=== PATIENT | female | born 1945 | race Caucasian/White ===

== ENCOUNTER 2016-11-14 16:01 | Emergency (ER) | payer MEDICARE ==
[~2016-11-14] VITALS: Ht 162.6 cm; Wt 77.0 kg
[2016-11-14 16:05] VITALS: BP 186/72; PULSE 68; RESP 16; TEMP 98.2; O2SAT 99
[2016-11-14] MEDS ORDERED: ASPIRIN 81 MG CHEW TAB PO ONE (16:15)
[2016-11-14] MEDS ORDERED: SODIUM CHLORIDE 0.9% FLUSH 5 ML FLUSH IVF PRN (16:15)
--- NOTE | 2016-11-14 16:22 | PD ---
HPI . Chest pain Chief Complaint: chest pain Time Seen by Provider: 16:07 Travel History International Travel<30 days: No Contact w/Intl Traveler<30days: No History of Present Illness HPI Patient presents ambulatory with a chief complaint of chest pain that started about 2:15. She describes a sharp, crampy type pain. It was associated with some mild shortness of breath. She states that she was unable to stand straight up because of the pain in her chest. She denies any associated nausea or vomiting she denies any associated diaphoresis. The pain has virtually subsided at this point. She denies any previous similar history. She does state that she had a negative outpatient workup done about 2 years ago. This included a nuclear stress test. She further states that she exercises daily at the gym and has never had to stop exercising because of chest pain or shortness of breath. [facility] Social History Tobacco Use: No Allergies-Medications (Allergen,Severity, Reaction): Coded Allergies: No Known Allergies (Unverified , 11/14/16) Reported Meds & Prescriptions Reported Meds & Active Scripts Active Reported Lipitor (Atorvastatin Calcium) 10 Mg Tab 10 Mg PO HS Lisinopril 5 Mg Tab 5 Mg PO DAILY Review of Systems Except as stated in HPI: all other systems reviewed are Neg General / Constitutional: Positive: Other (no diaphoresis), No: Fever, Chills Cardiovascular: Positive: Chest Pain or Discomfort Respiratory: Positive: Shortness of Breath Gastrointestinal: No: Nausea, Vomiting Physical Exam Narrative GENERAL: The patient is smiling and laughing and joking and in no distress. SKIN: Warm and dry. HEAD: Atraumatic. Normocephalic. EYES: Pupils equal and round. ENT: No nasal bleeding or discharge. Mucous membranes pink and moist. NECK: Trachea midline. Neck is supple. CARDIOVASCULAR: Regular rate and rhythm. Heart sounds are normal. RESPIRATORY: No accessory muscle use. Lungs are clear with full air movement throughout. Very mild tenderness to palpation under the left breast. GASTROINTESTINAL: Abdomen soft, non-tender, nondistended. MUSCULOSKELETAL: No obvious deformities. No edema. NEUROLOGICAL: Awake and alert. No obvious cranial nerve deficits. Motor grossly within normal limits. Normal speech. PSYCHIATRIC: Appropriate mood and affect; insight and judgment normal. Data Data Last Documented VS Vital Signs Date Time Temp Pulse Resp B/P Pulse Ox O2 Delivery O2 Flow Rate FiO2 11/14/16 17:00 63 16 156/78 99 11/14/16 16:05 98.2 Orders Ckmb (Isoenzyme) Profile (11/14/16 16:14) Complete Blood Count With Diff (11/14/16 16:14) Comprehensive Metabolic Panel (11/14/16 16:14) D-Dimer (11/14/16 16:14) Magnesium (Mg) (11/14/16 16:14) Prothrombin Time / Inr (Pt) (11/14/16 16:14) Act Partial Throm Time (Ptt) (11/14/16 16:14) Troponin I (11/14/16 16:14) Chest, Single Ap (11/14/16 16:14) Ecg Monitoring (11/14/16 16:14) Bilateral Bp Monitoring (11/14/16 16:14) Iv Access Insert/Monitor (11/14/16 16:14) Oximetry (11/14/16 16:14) Sodium Chloride 0.9% Flush (Ns Flush) (11/14/16 16:15) Ct Pulmonary Angiogram (11/14/16 17:39) Iohexol 350 Inj (Omnipaque 350 Inj) (11/14/16 18:45) Labs Laboratory Tests Test 11/14/16 16:15 White Blood Count 8.2 TH/MM3 Red Blood Count 4.41 MIL/MM3 Hemoglobin 13.8 GM/DL Hematocrit 40.0 % Mean Corpuscular Volume 90.7 FL Mean Corpuscular Hemoglobin 31.3 PG Mean Corpuscular Hemoglobin 34.5 % Concent Red Cell Distribution Width 11.9 % Platelet Count 250 TH/MM3 Mean Platelet Volume 8.3 FL Neutrophils (%) (Auto) 61.9 % Lymphocytes (%) (Auto) 29.9 % Monocytes (%) (Auto) 6.5 % Eosinophils (%) (Auto) 1.0 % Basophils (%) (Auto) 0.7 % Neutrophils # (Auto) 5.0 TH/MM3 Lymphocytes # (Auto) 2.5 TH/MM3 Monocytes # (Auto) 0.5 TH/MM3 Eosinophils # (Auto) 0.1 TH/MM3 Basophils # (Auto) 0.1 TH/MM3 CBC Comment DIFF FINAL Differential Comment Prothrombin Time 10.5 SEC Prothromb Time International 1.0 RATIO Ratio Activated Partial 24.0 SEC Thromboplast Time D-Dimer Quantitative (PE/DVT) 0.65 MG/L FEU Sodium Level 137 MEQ/L Potassium Level 3.4 MEQ/L Chloride Level 100 MEQ/L Carbon Dioxide Level 28.5 MEQ/L Anion Gap 9 MEQ/L Blood Urea Nitrogen 19 MG/DL Creatinine 1.10 MG/DL Estimat Glomerular Filtration 49 ML/MIN Rate Random Glucose 85 MG/DL Calcium Level 9.7 MG/DL Magnesium Level 2.1 MG/DL Total Bilirubin 0.4 MG/DL Aspartate Amino Transf 21 U/L (AST/SGOT) Alanine Aminotransferase 31 U/L (ALT/SGPT) Alkaline Phosphatase 62 U/L Total Creatine Kinase 87 U/L Troponin I LESS THAN 0.02 NG/ML Total Protein 8.2 GM/DL Albumin 4.5 GM/DL Exceptions Acute Myocardial Infarction ASA Not Given on Arrival: Already taken by patient MDM Medical Decision Making Medical Screen Exam Complete: Yes Emergency Medical Condition: Yes Medical Record Reviewed: Yes (the patient has virtually no records in our system. She's been seen a few times for mammograms.) Interpretation(s) Her EKG shows a sinus rhythm. She has a right bundle branch block. He also has some left ventricular hypertrophy. I do not have any old EKGs for comparison. Differential Diagnosis Differential diagnosis of chest pain includes but is not limited to musculoskeletal pain, pulmonary embolism, acute coronary syndrome, pneumonia, pleurisy Narrative Course Patient presents for the evaluation of chest pain. She describes a sharp, crampy pain. She exercises daily without difficulty and had a negative nuclear stress test 2 years ago. She is in absolutely no distress here. I have a very low index of suspicion for ACS. Last Impressions Chest X-Ray 11/14/16 1614 Signed Impressions: Service Date/Time: Monday, November 14, 2016 16:47 - CONCLUSION: 1. Borderline prominence of the right hilum. 2. Diminished lung lungs without infiltrates. Santo Monzon MD The chest x-ray was independently viewed by me. CBC & BMP Diagram 11/14/16 16:15 Cardiac enzymes are negative. D-dimer is 0.65. CT CONCLUSION: 1. No evidence for pulmonary embolism. 2. Right basilar subsegmental atelectasis/scarring. 3. No enlarged adenopathy or mass. Patient continues to be asymptomatic here. Diagnosis Primary Impression: Chest pain Qualified Code: R07.9 - Chest pain, unspecified type Patient Instructions: Chest Pain (ED), General Instructions Disposition: 01 DISCHARGE HOME Condition: Stable Coleen Titus MD Nov 14, 2016 16:22
[2016-11-14 17:00] VITALS: BP 156/78; PULSE 63; RESP 16; O2SAT 99
--- NOTE | 2016-11-14 17:01 | RADHPO ---
EXAM DATE/TIME: 11/14/2016 16:47 [facility] COMPARISON: No previous studies available for comparison. INDICATIONS : Sudden onset of severe chest pain today MEDICAL HISTORY : None. SURGICAL HISTORY : None. ENCOUNTER: Initial ACUITY: 1 day PAIN SCORE: 9/10 LOCATION: Bilateral chest FINDINGS: A single view of the chest demonstrates diminished lung volumes without evidence of mass, infiltrate or effusion. Right hilum is borderline prominent. The cardiomediastinal contours are unremarkable. O sseous structures are intact. CONCLUSION: 1. Borderline prominence of the right hilum. 2. Diminished lung lungs without infiltrates. Santo Monzon MD on November 14, 2016 at 16:59 Board Certified Radiologist. This report was verified electronically.
[2016-11-14 17:08] LABS: BASOPHIL # 0.1 TH/MM3 (0-0.2); BASOPHIL % 0.7 % (0.0-2.0); EOSINOPHIL # 0.1 TH/MM3 (0-0.4); HEMO FLAGS DIFF FINAL; LYMPH % 29.9 % (9.0-44.0); LYMPHOCYTE # 2.5 TH/MM3 (1.0-4.8); MEAN CELL VOLUME 90.7 FL (80.0-100.0); MEAN CORPUSCULAR HEMOGLOBIN 31.3 PG (27.0-34.0); MEAN CORPUSCULAR HGB CONC 34.5 % (32.0-36.0); MONO % 6.5 % (0.0-8.0); NEUT % 61.9 % (16.0-70.0); PLATELET COUNT 250 TH/MM3 (150-450); RED BLOOD COUNT 4.41 MIL/MM3 (4.00-5.30); RED CELL DISTRIBUTION WIDTH 11.9 % (11.6-17.2); WHITE BLOOD COUNT 8.2 TH/MM3 (4.0-11.0)
[2016-11-14] MEDS ORDERED: LISI-519 PO (17:12)
[2016-11-14] MEDS ORDERED: LIPI10TA PO (17:12)
[2016-11-14 17:19] LABS: CHLORIDE 100 MEQ/L (98-107); POTASSIUM 3.4 MEQ/L (3.5-5.1); SODIUM (NA) 137 MEQ/L (136-145)
[2016-11-14 17:24] LABS: ANION GAP 9 MEQ/L (5-15); BICARBONATE 28.5 MEQ/L (21.0-32.0); BLOOD UREA NITROGEN 19 MG/DL (7-18); MAGNESIUM 2.1 MG/DL (1.5-2.5); PROTHROMBIN TIME - PATIENT 10.5 SEC (9.8-11.6)
[2016-11-14 17:26] LABS: ALT (GPT) 31 U/L (10-53)
[2016-11-14 17:27] LABS: AST (GOT) 21 U/L (15-37); GLOMERULAR FILTRATION RATE 49 ML/MIN (>89)
[2016-11-14 17:29] LABS: ALKALINE PHOSPHATASE 62 U/L (45-117)
[2016-11-14 17:30] LABS: TOTAL BILIRUBIN ADULT 0.4 MG/DL (0.2-1.0)
[2016-11-14 17:31] LABS: CREATINE KINASE 87 U/L (26-192)
[2016-11-14] MEDS ORDERED: IOHEXOL 350 MG/ML 10 ML VIAL (for RAD DIAG) IV ONE (18:45)
--- NOTE | 2016-11-14 18:53 | RADHPO ---
EXAM DATE/TIME: 11/14/2016 18:29 [facility] COMPARISON: CHEST SINGLE AP, November 14, 2016, 16:47. INDICATIONS : Short of breath. IV CONTRAST: 65 cc Omnipaque 350 (iohexol) IV RADIATION DOSE: 14.92 CTDIvol (mGy) MEDICAL HISTORY : Hypertension. SURGICAL HISTORY : None. ENCOUNTER: Initial ACUITY: 1 day PAIN SCALE: 4/10 LOCATION: chest TECHNIQUE: Volumetric scanning of the chest was performed using a pulmonary embolism protocol MIP images were re constructed. Using automated exposure control and adjustment of the mA and/or kV according to patien t size, radiation dose was kept as low as reasonably achievable to obtain optimal diagnostic quality images. FINDINGS: PULMONARY ARTERIES: No filling defects are seen in the pulmonary arteries through the segmental level. LUNGS: There is no consolidation or pneumothorax . No concerning pulmonary nodule is visualized. Curvilinea r atelectasis/scarring right lower lobe. PLEURAE: There is no pleural thickening or pleural effusion. MEDIASTINUM: There is good visualization of the great vessels of the middle mediastinum. No evidence of mediastin al or hilar adenopathy/mass. MUSCULOSKELETAL: Within normal limits for patient age. MISCELLANEOUS: The visualized upper abdominal organs demonstrate no acute abnormality. CONCLUSION: 1. No evidence for pulmonary embolism. 2. Right basilar subsegmental atelectasis/scarring. 3. No enlarged adenopathy or mass. Santo Monzon MD on November 14, 2016 at 18:49 Board Certified Radiologist. This report was verified electronically.
[2016-11-14 19:12] VITALS: BP 177/71
--- NOTE | 2016-11-15 12:38 | EKG ---
Date Performed: 11/14/2016 Time Performed: 16:08:46 PTAGE: 71 years EKG: Sinus rhythm Left axis deviation RBBB with left anterior fascicular block Left ventricular hypertrophy Lateral ST changes are probably due to ventricular hypertrophy Abnormal ECG Compared to prior tracing no signif icant change PREVIOUS TRACING : 07/18/1997 11.13 DOCTOR: Zen Valdovinos Interpretating Date/Time 11/15/2016 12:35:09
== END 2016-11-14 19:15 | disposition home or self-care (01) ==
LOC: PHED 16:01
DX: R07.9 Chest pain, unspecified (principal); R06.02 Shortness of breath; R94.31 Abnormal electrocardiogram [ECG] [EKG]
CPT/HCPCS: 71010; 71275; 80053; 82550; 83735; 84484; 85025; 85379; 85610; 85730; 93005; 99285; Q9967

== ENCOUNTER 2018-01-24 11:45 | Emergency (ER) | payer MEDICARE | END 2018-01-24 15:04 | disposition home or self-care (01) | LOC: PHEFT 11:45 | DX: S20.211A Contusion of right front wall of thorax, initial encounter (principal); J45.909 Unspecified asthma, uncomplicated; E78.00 Pure hypercholesterolemia, unspecified; I10 Essential (primary) hypertension; W01.190A Fall on same level from slipping, tripping and stumbling with subsequent striking against furniture, initial encounter | CPT/HCPCS: 71101; 99283 ==